=== PATIENT | female | born 1960 | race Caucasian/White ===

== ENCOUNTER 2017-05-06 10:58 | Day surgery (SDC) | payer MEDICARE ==
[2017-05-06] MEDS: NS 1,000 ML IV (13:03)
[2017-05-06] MEDS ORDERED: PROPOFOL 200 MG/20 ML VIAL As Ordered ×2 (13:19→13:43)
[2017-05-06] MEDS ORDERED: LIDOCAINE 2% INJ 100 MG/5 ML SDV (FOR ANES.) As Ordered (13:19)
== END 2017-05-06 14:35 | disposition home or self-care (01) ==
LOC: M OPP 10:58
DX: R10.33 Periumbilical pain (principal); K80.20 Calculus of gallbladder without cholecystitis without obstruction; M62.00 Separation of muscle (nontraumatic), unspecified site; K63.89 Other specified diseases of intestine; K21.9 Gastro-esophageal reflux disease without esophagitis; R12 Heartburn; E10.9 Type 1 diabetes mellitus without complications; R11.0 Nausea; R14.0 Abdominal distension (gaseous); M19.90 Unspecified osteoarthritis, unspecified site; M46.00 Spinal enthesopathy, site unspecified; F32.9 Major depressive disorder, single episode, unspecified; F41.9 Anxiety disorder, unspecified; G62.9 Polyneuropathy, unspecified; N32.9 Bladder disorder, unspecified; Z89.421 Acquired absence of other right toe(s); F17.210 Nicotine dependence, cigarettes, uncomplicated; Z88.8 Allergy status to other drugs, medicaments and biological substances; Z79.899 Other long term (current) drug therapy
CPT/HCPCS: 45380

== ENCOUNTER → 2017-07-09 | Outpatient (REF) | payer MEDICARE ==
[2017-07-09 13:15] LABS: HEMATOCRIT 36.2 % (36.0-47.0); HEMOGLOBIN 11.6 g/dl (12.0-15.5); MEAN CORPUSCULAR HEMOGLOBIN 28.6 pg (27.0-33.0); MEAN CORPUSCULAR VOLUME 89.2 fl (80.0-96.0); PLATELET COUNT, AUTOMATED 343 10^3/uL (150-450); RED BLOOD COUNT 4.06 10^6/uL (4.00-5.40); RED CELL DISTRIBUTION WIDTH 12.6 % (11.5-14.5); WHITE BLOOD COUNT 7.5 10^3/uL (4.0-10.0)
[2017-07-09 13:27] LABS: ALBUMIN 3.3 GM/DL (3.2-5.2); ALKALINE PHOSPHATASE 56 U/L (45-117); ALT/SGPT 21 U/L (12-78); ANION GAP 5 MEQ/L (8-16); AST/SGOT 14 U/L (7-37); BILIRUBIN,TOTAL 0.2 MG/DL (0.2-1.0); BLOOD UREA NITROGEN 32 MG/DL (7-18); CALCIUM LEVEL 8.8 MG/DL (8.5-10.1); CARBON DIOXIDE LEVEL 28 MEQ/L (21-32); CHLORIDE LEVEL 105 MEQ/L (98-107); CREATININE FOR GFR 1.14 MG/DL (0.55-1.30); ESTIMATED AVERAGE GLUCOSE 243 MG/DL (60-110); GLOMERULAR FILTRATION RATE 51.9 (>51); GLUCOSE, FASTING 175 MG/DL (70-100); HEMOGLOBIN A1c 10.1 %; POTASSIUM SERUM 4.3 MEQ/L (3.5-5.1); SODIUM LEVEL 138 MEQ/L (136-145); TOTAL PROTEIN 7.4 GM/DL (6.4-8.2)
== END ==
LOC: M LAB REF 12:08
DX: L97.812 Non-pressure chronic ulcer of other part of right lower leg with fat layer exposed (principal); E11.621 Type 2 diabetes mellitus with foot ulcer; L97.522 Non-pressure chronic ulcer of other part of left foot with fat layer exposed
CPT/HCPCS: 80053

== ENCOUNTER → 2017-07-23 | Outpatient (CLI) | payer MEDICARE ==
[~2017-07-23] MED LIST: ISOVUE-370 76% 100ML VIAL (Q9967) As Ordered
== END ==
LOC: M RAD 08:53
DX: I87.311 Chronic venous hypertension (idiopathic) with ulcer of right lower extremity (principal)
CPT/HCPCS: Q9967

== ENCOUNTER → 2017-07-28 | Outpatient (REF) | payer MEDICARE | LOC: M LAB REF 18:06 | DX: M86.172 Other acute osteomyelitis, left ankle and foot (principal); E11.621 Type 2 diabetes mellitus with foot ulcer; L97.524 Non-pressure chronic ulcer of other part of left foot with necrosis of bone | CPT/HCPCS: 88305 ==

== ENCOUNTER 2017-08-13 08:28 | Inpatient (IN) | payer MEDICARE ==
[2017-08-13 09:07] LABS: BASO # 0.1 10^3/uL (0.0-0.2); BASO % 0.5 % (0.0-1.0); EOS # 0.5 10^3/uL (0.0-0.50); EOS % 2.5 % (0.0-3.0); HEMATOCRIT 34.2 % (36.0-47.0); HEMOGLOBIN 11.1 g/dl (12.0-15.5); IMMATURE GRANULOCYTE % 0.9 % (0-3.0); LYMPH # 1.6 10^3/uL (1.5-4.5); LYMPH % 8.2 % (24.0-44.0); MEAN CORPUSCULAR HEMOGLOBIN 27.8 pg (27.0-33.0); MEAN CORPUSCULAR HGB CONC 32.5 g/dl (32.0-36.5); MEAN CORPUSCULAR VOLUME 85.7 fl (80.0-96.0); MONO # 1.1 10^3/uL (0.0-0.8); MONO % 5.7 % (0.0-5.0); NEUTROPHILS # 16.3 10^3/uL (1.8-7.7); NEUTROPHILS % 82.2 % (36.0-66.0); PLATELET COUNT, AUTOMATED 415 10^3/uL (150-450); RED BLOOD COUNT 3.99 10^6/uL (4.00-5.40); RED CELL DISTRIBUTION WIDTH 12.4 % (11.5-14.5); WHITE BLOOD COUNT 19.8 10^3/uL (4.0-10.0)
[2017-08-13 09:13] LABS: INR 1.08; PROTHROMBIN TIME 14.2 SECONDS (12.4-14.5)
[2017-08-13 09:14] LABS: PARTIAL THROMBOPLASTIN TIME 38.3 SECONDS (26.8-37.9)
[2017-08-13 09:36] LABS: ANION GAP 8 MEQ/L (8-16); BLOOD UREA NITROGEN 19 MG/DL (7-18); CALCIUM LEVEL 8.6 MG/DL (8.5-10.1); CARBON DIOXIDE LEVEL 27 MEQ/L (21-32); CHLORIDE LEVEL 100 MEQ/L (98-107); CPK CREATINE PHOSPHOKINASE 90 U/L (26-192); CREATININE FOR GFR 1.04 MG/DL (0.55-1.30); GLOMERULAR FILTRATION RATE 57.7 (>51); GLUCOSE, FASTING 215 MG/DL (70-100); POTASSIUM SERUM 4.7 MEQ/L (3.5-5.1); SODIUM LEVEL 135 MEQ/L (136-145); TROPONIN I < 0.02 NG/ML (< 0.10)
[2017-08-13 09:41] LABS: CK-MB VALUE MASS 6.3 NG/ML (<3.6); NT-PRO BNP 79 PG/ML (<125)
[2017-08-13] MEDS ORDERED: DEXTROSE 50% 50 ML SYRINGE IV (10:45)
[2017-08-13] MEDS ORDERED: MORPHINE 4 MG/ML 1ML VIAL/SYRINGE (J2270) IV (10:45)
[2017-08-13] MEDS ORDERED: ONDANSETRON 4MG/2ML VIAL (J2405) IV ×3 (10:45→16:30)
[2017-08-13] MEDS ORDERED: GLUCAGON FOR INJ 1 MG VIAL (J1610) SC (10:45)
[2017-08-13] MEDS ORDERED: ACETAMINOPHEN TAB 650MG DOSE (2X325MG) PO (10:45)
[2017-08-13] MEDS ORDERED: GLUCOSE 4 GM CHEW TABLET PO (10:45)
[2017-08-13] MEDS: PERCOCET 5MG/325MG TAB PO (11:51)
[2017-08-13] MEDS ORDERED: HumaLOG INSULIN (NovoLOG) PER UNIT SC ×2 (12:00→21:00)
[2017-08-13 12:47] LABS: BEDSIDE GLUCOSE 187 MG/DL (70-105)
[2017-08-13] MEDS: NS 1,000 ML IV (12:57)
[2017-08-13] MEDS: HumaLOG INSULIN (NovoLOG) PER UNIT SC ×4 (12:58→21:00)
[2017-08-13] MEDS ORDERED: HEPARIN 1,000 UNITS/ML 10ML VIAL (FOR RADIOLOGY& DIALYSIS ONLY) As Ordered (13:38)
[2017-08-13] MEDS ORDERED: ISOVUE-300 61% 50ML VIAL (Q9967) As Ordered (13:39)
[2017-08-13] MEDS ORDERED: NORCO, ANEXSIA 5/325MG TABLET (HYDROcodone/ACETAMINOPHEN) PO (14:30)
[2017-08-13] MEDS ORDERED: FUROSEMIDE 20 MG TAB PO (14:30)
[2017-08-13] MEDS: clonazePAM 1 MG TAB PO ×2 (15:57→21:30)
[2017-08-13] MEDS: HEPARIN SOD (PORCINE) 5000 UNITS/ML VIAL SC ×2 (15:57→21:32)
[2017-08-13 16:16] LABS: BEDSIDE GLUCOSE 149 MG/DL (70-105)
[2017-08-13] MEDS: LR 1,000 ML IV ×2 (16:36)
[2017-08-13] MEDS: GABAPENTIN 300 MG CAP PO ×2 (16:54→21:30)
[2017-08-13] MEDS: ceFAZolin SOD 1 GM in D5W MINI-BAG PLUS 50 ML IV (16:55)
[2017-08-13] MEDS: LISINOPRIL 10 MG TAB PO (16:55)
[2017-08-13] MEDS: METHADONE 10 MG TAB (S0109) PO ×2 (16:56→21:30)
[2017-08-13] MEDS: NS 0.45% 1,000 ML IV (16:59)
[2017-08-13 17:14] LABS: BEDSIDE GLUCOSE 149 MG/DL (70-105)
[2017-08-13 20:23] LABS: BEDSIDE GLUCOSE 205 MG/DL (70-105)
[2017-08-13] MEDS: FENOFIBRATE 145 MG TAB (TRICOR) PO (21:31)
[2017-08-13] MEDS: AMITRIPTYLINE 50 MG TAB PO (21:31)
[2017-08-13] MEDS: LEVEMIR (INSULIN DETEMIR) 1 UNITS/0.01ML SC (21:31)
[2017-08-14] MEDS: NS 0.45% 1,000 ML IV (03:17)
[2017-08-14] MEDS: HEPARIN SOD (PORCINE) 5000 UNITS/ML VIAL SC ×2 (05:10→12:26)
[2017-08-14 05:40] LABS: HEMATOCRIT 33.4 % (36.0-47.0); MEAN CORPUSCULAR HGB CONC 32.9 g/dl (32.0-36.5); PLATELET COUNT, AUTOMATED 326 10^3/uL (150-450); RED BLOOD COUNT 3.93 10^6/uL (4.00-5.40); RED CELL DISTRIBUTION WIDTH 12.5 % (11.5-14.5); WHITE BLOOD COUNT 13.5 10^3/uL (4.0-10.0)
[2017-08-14 06:29] LABS: ANION GAP 7 MEQ/L (8-16); BLOOD UREA NITROGEN 18 MG/DL (7-18); CALCIUM LEVEL 8.3 MG/DL (8.5-10.1); CARBON DIOXIDE LEVEL 25 MEQ/L (21-32); CHLORIDE LEVEL 103 MEQ/L (98-107); CREATININE FOR GFR 0.88 MG/DL (0.55-1.30); GLOMERULAR FILTRATION RATE > 60.0 (>51); GLUCOSE, FASTING 127 MG/DL (70-100); POTASSIUM SERUM 4.3 MEQ/L (3.5-5.1); SODIUM LEVEL 135 MEQ/L (136-145); T UPTAKE 37 % (30-39)
[2017-08-14] MEDS: clonazePAM 1 MG TAB PO (08:12)
[2017-08-14] MEDS: HumaLOG INSULIN (NovoLOG) PER UNIT SC ×2 (08:12→12:26)
[2017-08-14] MEDS: GABAPENTIN 300 MG CAP PO (08:12)
[2017-08-14] MEDS: LISINOPRIL 10 MG TAB PO (08:13)
[2017-08-14] MEDS: METHADONE 10 MG TAB (S0109) PO (08:13)
[2017-08-14 11:47] LABS: BEDSIDE GLUCOSE 120 MG/DL (70-105)
== END 2017-08-14 15:41 | disposition left against medical advice (07) | DRG 630 ==
LOC: M ED 08:28 → M ED INP 10:37 → M MSPAV 12:21
PROC: 047L3DZ Dilation of Left Femoral Artery with Intraluminal Device, Percutaneous Approach (ICD-10-PCS; principal; 2017-08-13)
PROC: 047N3DZ Dilation of Left Popliteal Artery with Intraluminal Device, Percutaneous Approach (ICD-10-PCS; 2017-08-13)
PROC: B400YZZ Plain Radiography of Abdominal Aorta using Other Contrast (ICD-10-PCS; 2017-08-13)
PROC: B40GYZZ Plain Radiography of Left Lower Extremity Arteries using Other Contrast (ICD-10-PCS; 2017-08-13)
DX: E11.621 Type 2 diabetes mellitus with foot ulcer (principal); E11.42 Type 2 diabetes mellitus with diabetic polyneuropathy; E11.51 Type 2 diabetes mellitus with diabetic peripheral angiopathy without gangrene; G89.29 Other chronic pain; M54.40 Lumbago with sciatica, unspecified side; F17.210 Nicotine dependence, cigarettes, uncomplicated; Z79.4 Long term (current) use of insulin; Z89.411 Acquired absence of right great toe; Z79.899 Other long term (current) drug therapy; Z91.018 Allergy to other foods; Z88.6 Allergy status to analgesic agent

== ENCOUNTER → 2017-08-13 | Outpatient (CLI) | payer MEDICARE ==
[~2017-08-13] MED LIST changes: +HEPARIN 1,000 UNITS/ML 10ML VIAL (FOR RADIOLOGY& DIALYSIS ONLY) As Ordered; +ISOVUE-300 61% 50ML VIAL (Q9967) As Ordered; -ISOVUE-370 76% 100ML VIAL (Q9967) As Ordered; +MIDAZOLAM INJ 2 MG/2 ML VIAL (J2250) As Ordered; +fentaNYL 100 MCG/2 ML INJECTION (J3010) As Ordered
== END ==
LOC: M IRPRO 06:35
DX: I70.248 Atherosclerosis of native arteries of left leg with ulceration of other part of lower leg (principal); L97.829 Non-pressure chronic ulcer of other part of left lower leg with unspecified severity; I83.218 Varicose veins of right lower extremity with both ulcer of other part of lower extremity and inflammation; T81.4XXA Infection following a procedure, initial encounter; Z89.411 Acquired absence of right great toe
CPT/HCPCS: 37224

== ENCOUNTER 2017-08-28 10:34 | Emergency (ER) | payer MEDICARE | END 2017-08-28 13:33 | disposition home or self-care (01) | LOC: M ED 10:34 | DX: F43.0 Acute stress reaction (principal); E11.51 Type 2 diabetes mellitus with diabetic peripheral angiopathy without gangrene; I10 Essential (primary) hypertension; I73.9 Peripheral vascular disease, unspecified; G89.29 Other chronic pain; M54.30 Sciatica, unspecified side; F17.210 Nicotine dependence, cigarettes, uncomplicated | CPT/HCPCS: 99283 ==

== ENCOUNTER → 2018-11-08 | Outpatient (CLI) | payer MEDICARE ==
[~2018-11-08] MED LIST changes: +AMIT50TA PO; +CLON1TAB8 PO; +FENO160T10 PO; +FURO20TA2 PO; +GABA-843 PO; +GLIM4TAB PO; -HEPARIN 1,000 UNITS/ML 10ML VIAL (FOR RADIOLOGY& DIALYSIS ONLY) As Ordered; +HYDR-3713 PO; +INSULANT SC; -ISOVUE-300 61% 50ML VIAL (Q9967) As Ordered; +LISI10TA4 PO; +MELO7.5T7 PO; +METH10TA2 PO; -MIDAZOLAM INJ 2 MG/2 ML VIAL (J2250) As Ordered; +NEUR300C PO; +NORC1TAB7 PO; +ZOFR4TAB16 PO; -fentaNYL 100 MCG/2 ML INJECTION (J3010) As Ordered
--- NOTE | 2018-11-08 14:47 | REP ---
Right lower extremity Duplex Doppler venous ultrasound: Real time compression and duplex Doppler interrogation of the right lower extremity deep venous system is performed. The right common femoral, superficial femoral and popliteal veins are fully compressible with transducer pressure and demonstrate normal spontaneous and phasic flow, without evidence of deep venous thrombosis. Impression: No evidence of deep venous thrombosis of the right lower extremity femoral popliteal venous system. Electronically Signed by Gavin Sanders MD 11/08/2018 02:39 P
== END ==
LOC: M RAD 14:06
PROVIDERS: ATTEND Surgery Vascular Surgery
DX: M79.604 Pain in right leg (principal); R22.41 Localized swelling, mass and lump, right lower limb

== ENCOUNTER → 2018-12-27 | Outpatient (REF) | payer MEDICARE ==
[~2018-12-27] MED LIST changes: -GLIM4TAB PO; +GLIM4TAB3 PO
[2018-12-27 15:39] LABS: BASO # 0.1 10^3/uL (0.0-0.2); BASO % 0.8 % (0.0-1.0); EOS # 0.8 10^3/uL (0.0-0.5); EOS % 7.5 % (0.0-3.0); HEMOGLOBIN 11.4 g/dl (12.0-15.5); LYMPH % 28.5 % (24.0-44.0); MEAN CORPUSCULAR HEMOGLOBIN 28.2 pg (27.0-33.0); MEAN CORPUSCULAR HGB CONC 30.8 g/dl (32.0-36.5); MEAN CORPUSCULAR VOLUME 91.6 fl (80.0-96.0); MONO # 0.8 10^3/uL (0.0-0.8); MONO % 7.8 % (0.0-5.0); NEUTROPHILS # 5.9 10^3/uL (1.5-8.5); PLATELET COUNT, AUTOMATED 339 10^3/uL (150-450); RED BLOOD COUNT 4.04 10^6/uL (4.00-5.40); WHITE BLOOD COUNT 10.7 10^3/uL (4.0-10.0)
[2018-12-27 15:41] LABS: ALBUMIN 3.4 GM/DL (3.2-5.2); BILIRUBIN,TOTAL 0.2 MG/DL (0.2-1.0); C REACTIVE PROTEIN QUANTITATIV 0.73 MG/DL (0.00-0.30); CALCIUM LEVEL 8.8 MG/DL (8.8-10.2); CREATININE FOR GFR 1.38 MG/DL (0.55-1.30); GLOMERULAR FILTRATION RATE 41.5 (>45); POTASSIUM SERUM 4.2 MEQ/L (3.5-5.1); TOTAL PROTEIN 7.2 GM/DL (6.4-8.2)
[2018-12-27 15:50] LABS: APPEARANCE, URINE CLOUDY (CLEAR); BACTERIA, URINE AUTO NEGATIVE (NEGATIVE); BILIRUBIN, URINE AUTO NEGATIVE (NEGATIVE); BLOOD, URINE BLOOD 1+ (NEGATIVE); COLOR, URINE YELLOW (YELLOW); GLUCOSE, URINE (UA) AUTO 3+ mg/dL (NEGATIVE); KETONE, URINE AUTO NEGATIVE (NEGATIVE); LEUKOCYTE ESTERASE, URINE AUTO 2+ (NEGATIVE); NITRITE, URINE AUTO NEGATIVE (NEGATIVE); PROTEIN, URINE AUTO NEGATIVE (NEGATIVE); RBC, URINE AUTO 4 /HPF (0-3); SPECIFIC GRAVITY URINE AUTO 1.012 (1.002-1.035); SQUAMOUS EPITHELIAL CELL UR AU 1 /HPF (0-6); UROBILINOGEN, URINE AUTO 0.2 mg/dL (0.0-2.0); WBC, URINE AUTO TNTC /HPF (0-3)
[2018-12-27 16:15] LABS: ERYTHROCYTE SEDIMENTATION RATE 18 mm/hr (0-30)
== END ==
LOC: M SFHCPLAZ 12:33
PROVIDERS: ATTEND Internal Medicine Infectious Disease
DX: N39.0 Urinary tract infection, site not specified (principal)
CPT/HCPCS: 36415; 80053; 81001; 85025; 85652; 86140; 87086; G0463

== ENCOUNTER → 2019-05-03 | Outpatient (REF) | payer MEDICARE ==
[~2019-05-03] MED LIST changes: -GLIM4TAB3 PO; +GLIM4TAB5 PO
[2019-05-03 13:42] LABS: APPEARANCE, URINE CLEAR (CLEAR); BACTERIA, URINE AUTO NEGATIVE (NEGATIVE); BILIRUBIN, URINE AUTO NEGATIVE (NEGATIVE); BLOOD, URINE BLOOD NEGATIVE (NEGATIVE); COLOR, URINE STRAW (YELLOW); GLUCOSE, URINE (UA) AUTO 3+ mg/dL (NEGATIVE); KETONE, URINE AUTO NEGATIVE (NEGATIVE); LEUKOCYTE ESTERASE, URINE AUTO TRACE (NEGATIVE); NITRITE, URINE AUTO NEGATIVE (NEGATIVE); PROTEIN, URINE AUTO NEGATIVE (NEGATIVE); RBC, URINE AUTO 1 /HPF (0-3); SPECIFIC GRAVITY URINE AUTO 1.022 (1.002-1.035); SQUAMOUS EPITHELIAL CELL UR AU 1 /HPF (0-6); UROBILINOGEN, URINE AUTO 0.2 mg/dL (0.0-2.0); WBC, URINE AUTO 3 /HPF (0-3)
== END ==
LOC: M SMT 13:05
PROVIDERS: ATTEND Nurse Practitioner Women's Health
DX: R39.89 Other symptoms and signs involving the genitourinary system (principal)
CPT/HCPCS: 51798; 81001; 87086; G0463

== ENCOUNTER → 2019-09-30 | Outpatient (REF) | payer MEDICARE ==
[~2019-09-30] MED LIST changes: +POTA10TA16 PO; +VAGI10TA VA
== END ==
LOC: M SMT 09:13
PROVIDERS: ATTEND Urology
DX: N30.90 Cystitis, unspecified without hematuria (principal)

== ENCOUNTER → 2019-11-11 | Outpatient (REF) | payer MEDICARE ==
[2019-11-11 20:03] LABS: APPEARANCE, URINE CLOUDY (CLEAR); BACTERIA, URINE AUTO NEGATIVE (NEGATIVE); BILIRUBIN, URINE AUTO NEGATIVE (NEGATIVE); BLOOD, URINE BLOOD 1+ (NEGATIVE); COLOR, URINE YELLOW (YELLOW); GLUCOSE, URINE (UA) AUTO NEGATIVE (NEGATIVE); KETONE, URINE AUTO NEGATIVE (NEGATIVE); LEUKOCYTE ESTERASE, URINE AUTO 3+ (NEGATIVE); NITRITE, URINE AUTO NEGATIVE (NEGATIVE); PROTEIN, URINE AUTO NEGATIVE (NEGATIVE); RBC, URINE AUTO 6 /HPF (0-3); SPECIFIC GRAVITY URINE AUTO 1.012 (1.002-1.035); SQUAMOUS EPITHELIAL CELL UR AU 0 /HPF (0-6); UROBILINOGEN, URINE AUTO 0.2 mg/dL (0.0-2.0); WBC, URINE AUTO TNTC /HPF (0-3)
== END ==
LOC: M LAB REF 17:21
PROVIDERS: ATTEND Obstetrics & Gynecology
DX: N30.00 Acute cystitis without hematuria (principal)

== ENCOUNTER → 2019-12-17 | Outpatient (CLI) | payer MEDICARE | LOC: M LABSMTC 08:07 | PROVIDERS: ATTEND Anesthesiology | DX: Z01.818 Encounter for other preprocedural examination (principal); Z20.828 Contact with and (suspected) exposure to other viral communicable diseases | CPT/HCPCS: C9803; U0003 ==

== ENCOUNTER → 2020-05-14 | Outpatient (REF) | payer MEDICARE ==
[~2020-05-14] MED LIST changes: +GABA-282 PO; -GABA-843 PO; +LISI10TA22 PO; -LISI10TA4 PO
[2020-05-14 17:12] LABS: APPEARANCE, URINE TURBID (CLEAR); BACTERIA, URINE AUTO 2+ (NEGATIVE); BILIRUBIN, URINE AUTO NEGATIVE (NEGATIVE); BLOOD, URINE BLOOD 2+ (NEGATIVE); COLOR, URINE YELLOW (YELLOW); GLUCOSE, URINE (UA) AUTO 3+ mg/dL (NEGATIVE); KETONE, URINE AUTO NEGATIVE (NEGATIVE); LEUKOCYTE ESTERASE, URINE AUTO 3+ (NEGATIVE); NITRITE, URINE AUTO NEGATIVE (NEGATIVE); PROTEIN, URINE AUTO 2+ mg/dL (NEGATIVE); RBC, URINE AUTO 81 /HPF (0-3); SPECIFIC GRAVITY URINE AUTO 1.008 (1.002-1.035); SQUAMOUS EPITHELIAL CELL UR AU 3 /HPF (0-6); UROBILINOGEN, URINE AUTO 0.2 mg/dL (0.0-2.0); WBC, URINE AUTO TNTC /HPF (0-3)
== END ==
LOC: M LAB REF 16:20
PROVIDERS: ATTEND Obstetrics & Gynecology
DX: R35.0 Frequency of micturition (principal); N32.81 Overactive bladder

== ENCOUNTER → 2020-06-23 | Outpatient (CLI) | payer MEDICARE ==
[~2020-06-23] MED LIST changes: +ASPI81TA26 PO; +ATOR80TA59; +LEVO50TA5; +METO1TAB32
== END ==
LOC: M LABSMTC 09:41
PROVIDERS: ATTEND Anesthesiology
DX: Z01.818 Encounter for other preprocedural examination (principal); Z11.52 Encounter for screening for COVID-19

== ENCOUNTER 2020-06-28 06:00 | Day surgery (SDC) | payer MEDICARE ==
[~2020-06-28] VITALS: Ht 152.4 cm; Wt 86.5 kg
[~2020-06-28 06:00] MED LIST changes: +LR 1,000 ML IV ONE; +ceFAZolin SOD 2 GM in IV 1 EA IV ONE
[2020-06-28 06:38] LABS: HEMATOCRIT 39.4 % (36.0-47.0); HEMOGLOBIN 12.4 g/dl (12.0-15.5); MEAN CORPUSCULAR HEMOGLOBIN 27.1 pg (27.0-33.0); MEAN CORPUSCULAR HGB CONC 31.5 g/dl (32.0-36.5); PLATELET COUNT, AUTOMATED 337 10^3/uL (150-450); RED BLOOD COUNT 4.58 10^6/uL (4.00-5.40); WHITE BLOOD COUNT 11.9 10^3/uL (4.0-10.0)
[2020-06-28] MEDS ORDERED: fentaNYL 250 MCG/5 ML INJECTION (J3010) As Ordered ONE (06:42)
[2020-06-28] MEDS ORDERED: ROCURONIUM BROMIDE 50 MG/5 ML VIAL As Ordered ONE (06:43)
[2020-06-28] MEDS ORDERED: propofoL 200 MG/20 ML VIAL As Ordered ONE (06:43)
[2020-06-28] MEDS ORDERED: MIDAZOLAM INJ 2MG/2ML VIAL (J2250 PER 1MG) As Ordered ONE (06:43)
[2020-06-28] MEDS ORDERED: dexameTHASONE 4 MG/ML 1ML VIAL (J1100 PER 1MG) As Ordered ONE (06:44)
[2020-06-28] MEDS ORDERED: ACETAMINOPHEN 1000MG 100ML IV BTL (OFIRMEV) (J0131 PER 10MG) As Ordered ONE (06:44)
[2020-06-28] MEDS ORDERED: LIDOCAINE 2% 100MG/5ML SDV (FOR ANES.) As Ordered ONE ×2 (06:44→08:00)
[2020-06-28] MEDS ORDERED: SUGAMMADEX SODIUM 500 MG/5 ML VIAL (BRIDION) As Ordered ONE (06:46)
[2020-06-28] MEDS ORDERED: ONDANSETRON 4MG/2ML VIAL As Ordered ONE (06:46)
[2020-06-28] MEDS ORDERED: KETOROLAC 60MG 2ML VIAL As Ordered ONE (06:50)
[2020-06-28] MEDS ORDERED: VASOPRESSIN INJ 20 UNITS/ML VIAL As Ordered ONE (07:08)
[2020-06-28] MEDS ORDERED: D5W/0.2% SODIUM CHLORIDE 1,000 ML IV ONE (07:35)
[2020-06-28] MEDS ORDERED: HEPARIN SOD (PORCINE) 5000UNITS/ML 1ML VIAL/SYRINGE As Ordered ONE ×2 (08:05→08:06)
[2020-06-28] MEDS ORDERED: ePHEDrine SULFATE 25 MG/5 ML(5MG/ML) SYRINGE As Ordered ONE (09:31)
[2020-06-28] MEDS ORDERED: ONDANSETRON 4MG/2ML VIAL IV PRN (10:30)
[2020-06-28] MEDS ORDERED: PERCOCET 5MG/325MG TAB PO PRN (10:30)
[2020-06-28] MEDS ORDERED: METOCLOPRAMIDE INJ 10MG/2ML VIAL (J2765 PER 1) IV PRN (10:30)
[2020-06-28] MEDS ORDERED: LR 1,000 ML IV SCH ×2 (10:30→10:35)
[2020-06-28] MEDS ORDERED: fentaNYL 100 MCG/2 ML INJECTION (J3010) IV PRN (10:30)
[2020-06-28] MEDS ORDERED: IBUPROFEN 600MG TAB PO PRN (10:35)
--- NOTE | 2020-06-28 11:52 | RO ---
OPERATIVE NOTE DATE OF OPERATION: 06/28/2020 PREOPERATIVE DIAGNOSIS/INDICATIONS FOR SURGERY: Symptomatic prolapse, retention and white cells in urine. POSTOPERATIVE DIAGNOSIS: Symptomatic prolapse, retention and white cells in urine. FINDINGS: Prolapse and sediment in the bladder but no specific bladder lesions, but does not rule out stone higher up. PROCEDURE: [place] colpocleisis with cystourethroscopy done for the separate indication as noted above. SURGEON: Marylin Riggs MD REDRAWER: None. SPECIMEN: Vaginal epithelium. ANESTHESIA: LMA. DESCRIPTION OF PROCEDURE AND FINDINGS: Jacki was brought to the operating room where sufficient LMA anesthesia was induced and she was prepped and draped and positioned in usual sterile fashion. The patient's anterior prolapse was external, posterior prolapse not as pronounced so we did empty the bladder and there was again sedimentary retention. After emptying the bladder placed a retractor, placed Allis' at the cuff and marked off anterior and posterior mental guidelines with Allis' and then cut transversely at the cuff. Anteriorly and posteriorly leaving a strip of tissue be there as support at this scar which was not falling out in the way that her bladder was. We then excised a __ peninsula of tissue posteriorly, rectangular, so we had that transverse incision at top and came down the posterior sulcus on both sides and left that tissue connected at the introitus and on an Allis so it would hang out away and we marked with suture those corners and second suture on the patient's right side because I am left-handed so that I would be able to bring one across and separately come down the two sides because this patient had quite a bit of redundant tissue anteriorly and I did not want to lose orientation. We then completed the transverse anterior incision and then came in again a rectilinear shape down the anterior vaginal sulcus on both sides leaving apical tissue and the lateral tissue. When we had dissected for enough anteriorly we did renee and come across and in this patient we wanted to leave enough room for any future intervention for her incontinence. She did have some incontinence but she also had retention and with a pessary would have improvement rather than an increase in leakage but there is still not a tremendously strong fold there and I certainly did not want to obstruct it given her history of retention but I did not want to lose the option to put in support in the future and we had already discussed that. She did have a natural fold there to follow. We would remove the entire rectangle of tissue anteriorly. We then did an anterior repair to reduce very large cystocele and plicate at the bladder neck so that we could line those edges up and then we sewed across with separate suture across the apex and down the two sides with the two sutures that I had previously placed. We completed the excision of the posterior tissue which was also sent for pathologic evaluation and closed across at the introitus completing the colpocleisis. We had good approximation and hemostasis throughout this. We then proceeded to the cystourethroscopy. As expected there was quite a bit of sedimentary material within the bladder but with irrigation we were able to flush all this off, there were no polyps, no specific lesions, we were able to see the ureters, view function, some question of whether the urine coming out on the right side is cloudy or not, I really could not answer that question because at one point it looked like it but then with flushing it looks like it was not so this is probably just cloudiness within the bladder itself where she had had all that retention and simply stagnant urine. But again, there is no evidence of bladder injury and no obstruction of ureters, etc and no lesions leading to the preop finding. The procedure was then ended. ESTIMATED BLOOD LOSS: 25 mL. FLUID REPLACEMENT: Crystalloid. COMPLICATIONS: None. CONDITION AND DISPOSITION: Jacki tolerated the procedure well. I will say at the beginning of the case she was for prophylaxis for DVT given 5000 units of Heparin subcu and that was ordered in the operating room but given of course preop. She is recovering in the recovery room in good condition.
[2020-06-28 12:25] VITALS: BP 114/61
== END 2020-06-28 12:35 | disposition home or self-care (01) ==
LOC: M SDC 06:00
PROVIDERS: ATTEND Obstetrics & Gynecology
DX: N76.89 Other specified inflammation of vagina and vulva (principal); N81.89 Other female genital prolapse; R33.9 Retention of urine, unspecified; R82.90 Unspecified abnormal findings in urine; E11.40 Type 2 diabetes mellitus with diabetic neuropathy, unspecified; I11.9 Hypertensive heart disease without heart failure; E78.49 Other hyperlipidemia; R60.0 Localized edema; I25.10 Atherosclerotic heart disease of native coronary artery without angina pectoris; E03.9 Hypothyroidism, unspecified; I65.23 Occlusion and stenosis of bilateral carotid arteries; R10.9 Unspecified abdominal pain; R12 Heartburn; M48.00 Spinal stenosis, site unspecified; Z86.718 Personal history of other venous thrombosis and embolism; F41.9 Anxiety disorder, unspecified; F32.9 Major depressive disorder, single episode, unspecified; G57.93 Unspecified mononeuropathy of bilateral lower limbs; G25.81 Restless legs syndrome; F17.219 Nicotine dependence, cigarettes, with unspecified nicotine-induced disorders; Z88.8 Allergy status to other drugs, medicaments and biological substances; Z91.018 Allergy to other foods; Z79.899 Other long term (current) drug therapy; Z79.82 Long term (current) use of aspirin; Z79.4 Long term (current) use of insulin
CPT/HCPCS: 36415; 52000; 57120; 85027; 88302; J0131; J0690; J1100; J1644; J1885; J2250; J2405; J3010

== ENCOUNTER → 2020-09-04 | Outpatient (REF) | payer MEDICARE ==
[~2020-09-04] MED LIST changes: -LR 1,000 ML IV ONE; -ceFAZolin SOD 2 GM in IV 1 EA IV ONE
[2020-09-04 12:19] LABS: MEAN CORPUSCULAR HEMOGLOBIN 27.2 pg (27.0-33.0); MEAN CORPUSCULAR HGB CONC 31.4 g/dl (32.0-36.5); MEAN CORPUSCULAR VOLUME 86.4 fl (80.0-96.0); PLATELET COUNT, AUTOMATED 370 10^3/uL (150-450); RED BLOOD COUNT 4.05 10^6/uL (4.00-5.40); WHITE BLOOD COUNT 12.5 10^3/uL (4.0-10.0)
[2020-09-04 12:57] LABS: BILIRUBIN,TOTAL 0.4 MG/DL (0.2-1.0); CALCIUM LEVEL 8.5 MG/DL (8.8-10.2); CREATININE FOR GFR 1.57 MG/DL (0.55-1.30); GLOMERULAR FILTRATION RATE 35.5 (>45); POTASSIUM SERUM 4.4 MEQ/L (3.5-5.1); TOTAL PROTEIN 7.3 GM/DL (6.4-8.2)
[2020-09-04 13:06] LABS: HEMOGLOBIN A1c 10.7 %
== END ==
LOC: M LAB REF 11:19
PROVIDERS: ATTEND Surgery
DX: I87.312 Chronic venous hypertension (idiopathic) with ulcer of left lower extremity (principal); Z79.899 Other long term (current) drug therapy; L97.822 Non-pressure chronic ulcer of other part of left lower leg with fat layer exposed; L97.812 Non-pressure chronic ulcer of other part of right lower leg with fat layer exposed
CPT/HCPCS: 11042; 11045; 80053; 83036; 85027; G0463

== ENCOUNTER → 2020-10-16 | Outpatient (CLI) | payer MEDICARE ==
[~2020-10-16] MED LIST changes: +METH-1177 PO; -METH10TA2 PO
== END ==
LOC: M RAD 12:19
PROVIDERS: ATTEND Surgery
DX: L97.822 Non-pressure chronic ulcer of other part of left lower leg with fat layer exposed (principal); L97.812 Non-pressure chronic ulcer of other part of right lower leg with fat layer exposed

== ENCOUNTER → 2020-10-22 | Outpatient (CLI) | payer MEDICARE ==
[~2020-10-22] MED LIST changes: +ANEC4CRE3 TOP; +CAPS0.022 TOP; +OMEP-221; +POTA-149 PO; -POTA10TA16 PO
== END ==
LOC: M RAD 07:41
PROVIDERS: ATTEND Surgery
DX: I70.212 Atherosclerosis of native arteries of extremities with intermittent claudication, left leg (principal); L97.329 Non-pressure chronic ulcer of left ankle with unspecified severity; K80.20 Calculus of gallbladder without cholecystitis without obstruction; R10.11 Right upper quadrant pain; R10.13 Epigastric pain

== ENCOUNTER 2020-12-19 10:19 | Emergency (ER) | payer MEDICARE ==
[~2020-12-19] VITALS: Ht 152.4 cm; Wt 80.5 kg
[~2020-12-19 10:19] MED LIST changes: -ANEC4CRE3 TOP; -CAPS0.022 TOP; -OMEP-221
[2020-12-19] MEDS ORDERED: OMEP-221 (10:27)
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
--- OUTSIDE RECORDS SUMMARY | 2020-12-19 10:29 | CCD ---
Author Author [facility] Organization [facility] Address Unknown Phone Unavailable Care Team Providers Care Heel Breaster Name Role Phone Truong Funes Unavailable PROBLEMS Type Condition ICD9-CM Code [id number] Code Onset Dates Condition S tatus W/U Status Risk SNOMED Code Notes Problem Chronic venous hypertension (idiopathic) with ulcer of left lower extremity I87.312 Active confirmed [id number] Problem Ingrowing right great toenail 703.0 Active confirm ed 961521326 Problem Non-pressure chronic ulcer o f other part of left lower leg with fat layer exposed L97.822 Active confirmed 52137551 Problem 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 of skin L97.421 Active confirmed 525849861 Problem Polyneuropathy G62.9 Active confirmed 58706 000 Problem Non-pressure chronic ulcer o f other part of left foot with fat layer exposed L97.522 Active confirmed 127531345 Problem Type 2 diabetes mellitus with foot ulcer E11.621 Active confirmed 128988229 Problem 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 9 Active confirmed 136694799 Problem Menopause Z78.0 Active confirmed 323595277 Problem Recurrent UTI N39.0 Active confirmed 639986 001 ALLERGIES Allergen (clinical drug ingredient) Drug/Non Drug Allergy do cumented on EMR Reaction Allergy Type Onset Date Status [place] juice orange juice Hives Non Drug Allergy Acti ve naproxen Naprosyn([facility] Code:[address]-65) Nausea/Vomiting Drug Loy rgy Active ENCOUNTERS from 1960 to 2020-11-28 Encounter Location Date Provider Diagnosis [facility] [address] [facility] [phone] [place] [address] Oct, Truong Funes IMMUNIZATIONS Vaccine Route Administration Date Status Influenza [...] REASON FOR REFERRAL No Information VITAL SIGNS No information MEDICATIONS Medication SIG (Take, Route, Frequency, Duration) Notes Start Da te End Date Status Acetaminophen 325 MG 1 capsule as needed Orally every 6 hrs Not-Taking Methadone 10mg 1 tab po tid Active clonazePAM 1 MG 1 tablet Orally bid Active Ondansetron HCl 4 MG 1 tab Orally q6h Unknown Metoprolol Tartrate 25 MG 1.5 tablet Orally Twice a day Active Lantus 100 UNIT/ML 40 units am 40 units pm Subcutaneous daily Active Nitroglycerin 0.4 MG as directed Sublingual Active Meloxicam 7.5 MG 1 tablet Orally bid Unknown Nystatin 300155 UNIT/GM 1 application Externally Twice a day to groin area Apr, Unknown Lisinopril 10 MG 1 tablet Orally Once a day Active Levothyroxine Sodium 50 MCG 1 tablet in the morning on an empty stomach Orally Once a day for 30 day(s) Active Aspir-81 Active Glimepiride 4 4mg oral daily Active Fenofibrate 160 MG 1 tablet with food Orally Once a day Unknown Torsemide 20 MG as directed Orally A ctive Amitriptyline HCl 50 MG 1 tablet Orally Once a day Active Premarin 0.625 MG/GM as directed Vaginal three times a week for 30 days Dec, Unknown Pyridium 200 MG 1 tablet after meals Orally Three times a day fo r 5 days Jul, Unknown Wellbutrin SR 150 MG 1 tablet in the morning Orally Once a day f or 30 day(s) Not-Taking Lipitor 80 MG 1 tablet Orally Once a day for 30 day(s) Active Nystatin 539438 UNIT/GM 1 application Externally Twice a day for 30 Days Dec, Active Furosemide 20 MG 1 tablet Orally Once a day Active Macrobid 100 MG 1 cap Orally bid for 10 day(s) Jul, 0 Unknown Aspirin 325 MG 1 tablet Orally Once a day for 30 day(s) Not-Taking PROCEDURES No Information RESULTS No Results REASON FOR VISIT Arterial US MEDICAL (GENERAL) HISTORY Type Description Date Medical [...] No Information FUNCTIONAL STATUS No Information ASSESSMENTS No Information PLAN OF TREATMENT Next Appt Details Provider Name:Truong Funes, 01:15:00 PM, [address], , [place], [address], Insurance Providers Payer Name Payer Address Payer Phone Insured Name Patient Relati onship to Insured Coverage Start Date Coverage End Date MEDICARE COMPLETE [employer] [address] [address] [facility] [phone] MARLIN VIVAS self
--- OUTSIDE RECORDS SUMMARY | 2020-12-19 10:30 | CCD ---
Author Author [facility] Organization [facility] Address Unknown Phone Unavailable Care Team Providers Care Central Supply Technician Name Role Phone Truong Funes Unavailable PROBLEMS Type Condition ICD9-CM Code [id number] Code Onset Dates Condition S tatus W/U Status Risk SNOMED Code Notes Problem Chronic venous hypertension (idiopathic) with ulcer of left lower extremity I87.312 Active confirmed 809743580580811 Problem Ingrowing right great toenail 703.0 Active confirm ed 664637407 Problem Non-pressure chronic ulcer o f other part of left lower leg with fat layer exposed L97.822 Active confirmed 97689307 Problem 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 of skin L97.421 Active confirmed 103145211 Problem Polyneuropathy G62.9 Active confirmed 94815 000 Problem Non-pressure chronic ulcer o f other part of left foot with fat layer exposed L97.522 Active confirmed 184141552 Problem Type 2 diabetes mellitus with foot ulcer E11.621 Active confirmed 789045820 Problem 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 9 Active confirmed 656819933 Problem Menopause Z78.0 Active confirmed 923978621 Problem Recurrent UTI N39.0 Active confirmed 155923 001 ALLERGIES Allergen (clinical drug ingredient) Drug/Non Drug Allergy do cumented on EMR Reaction Allergy Type Onset Date Status [place] juice orange juice Hives Non Drug Allergy Acti ve naproxen Naprosyn([facility] Code:[address]-54) Nausea/Vomiting Drug Loy rgy Active ENCOUNTERS from 1960 to 2020-10-08 Encounter Location Date Provider Diagnosis [facility] [address] [phone] [place] [address] Sep, Truong Funes IMMUNIZATIONS Vaccine Route Administration Date [...] Notes Start Da te End Date Status Lisinopril 10 MG 1 tablet Orally Once a day Active Premarin 0.625 MG/GM as directed Vaginal three times a week for 30 days Dec, Unknown Torsemide 20 MG as directed Orally A ctive Lipitor 80 MG 1 tablet Orally Once a day for 30 day(s) Active Nystatin 430308 UNIT/GM 1 application Externally Twice a day to groin area Apr, Unknown Levothyroxine Sodium 50 MCG 1 tablet in the morning on an empty stomach Orally Once a day for 30 day(s) Active Metoprolol Tartrate 25 MG 1.5 tablet Orally Twice a day Active clonazePAM 1 MG 1 tablet Orally bid Active Nitroglycerin 0.4 MG as directed Sublingual Active Lantus 100 UNIT/ML 40 units am 40 units pm Subcutaneous daily Active Fenofibrate 160 MG 1 tablet with food Orally Once a day Unknown Wellbutrin SR 150 MG 1 tablet in the morning Orally Once a day f or 30 day(s) Not-Taking Furosemide 20 MG 1 tablet Orally Once a day Active Meloxicam 7.5 MG 1 tablet Orally bid Unknown Acetaminophen 325 MG 1 capsule as needed Orally every 6 hrs Not-Taking Macrobid 100 MG 1 cap Orally bid for 10 day(s) Jul, 0 Unknown Nystatin 789618 UNIT/GM 1 application Externally Twice a day for 30 Days Dec, Active Aspirin 325 MG 1 tablet Orally Once a day for 30 day(s) Not-Taking Aspir-81 Active Pyridium 200 MG 1 tablet after meals Orally Three times a day fo r 5 days Jul, Unknown Ondansetron HCl 4 MG 1 tab Orally q6h Unknown Glimepiride 4 4mg oral daily Active Amitriptyline HCl 50 MG 1 tablet Orally Once a day Active Methadone 10mg 1 tab po tid Active PROCEDURES No Information RESULTS No Results REASON FOR VISIT BLE arterial US MEDICAL (GENERAL) HISTORY Type Description Date [...] TREATMENT Next Appt Details Provider Name:Truong Funes, 11:00:00 AM, [address], , [place], [address], Insurance Providers Payer Name Payer Address Payer Phone Insured Name Patient Relati onship to Insured Coverage Start Date Coverage End Date MEDICARE COMPLETE [employer] [address] [address] [facility] [id number] MARLIN IVVAS self
--- OUTSIDE RECORDS SUMMARY | 2020-12-19 10:30 | CCD ---
Author Author [facility] Organization [facility] Address Unknown Phone Unavailable Care Team Providers Care Overage Shortage And Damage Clerk Name Role Phone Truong Funes Unavailable PROBLEMS Type Condition ICD9-CM Code AUG02-GD Code Onset Dates Condition S tatus W/U Status Risk SNOMED Code Notes Problem Chronic venous hypertension (idiopathic) with ulcer of left lower extremity I87.312 Active confirmed [id number] Problem Ingrowing right great toenail 703.0 Active confirm ed 649594396 Problem Non-pressure chronic ulcer o f other part of left lower leg with fat layer exposed L97.822 Active confirmed 69732385 Problem 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 of skin L97.421 Active confirmed 238134903 Problem Polyneuropathy G62.9 Active confirmed 99791 000 Problem Non-pressure chronic ulcer o f other part of left foot with fat layer exposed L97.522 Active confirmed 666579283 Problem Type 2 diabetes mellitus with foot ulcer E11.621 Active confirmed 425577794 Problem 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 9 Active confirmed 751070225 Problem Menopause Z78.0 Active confirmed 731164730 Problem Recurrent UTI N39.0 Active confirmed 124929 001 ALLERGIES Allergen (clinical drug ingredient) Drug/Non Drug Allergy do cumented on EMR Reaction Allergy Type Onset Date Status [place] juice orange juice Hives Non Drug Allergy Acti ve naproxen Naprosyn([facility] Code:[address]-82) Nausea/Vomiting Drug Loy rgy Active ENCOUNTERS from 1960 to 2020-10-10 Encounter Location Date Provider Diagnosis [facility] [address] [facility] [phone] [place] [address] Sep, Truong Funes IMMUNIZATIONS Vaccine Route Administration [...] a day for 30 day(s) Active Nystatin 683097 UNIT/GM 1 application Externally Twice a day [...] for 10 day(s) Jul, 0 Unknown Nystatin 883928 UNIT/GM 1 application Externally Twice a day [...] Information RESULTS No Results REASON FOR VISIT U/s Notification MEDICAL (GENERAL) HISTORY Type Description Date Medical [...] Name:Truong Funes, 11:00:00 AM, [address], , [place], [address], Insurance Providers Payer Name Payer Address Payer Phone Insured Name Patient Relati onship to Insured Coverage Start Date Coverage End Date MEDICARE COMPLETE [employer] [address] [address] [facility] [address] MARLIN VIVAS self
--- OUTSIDE RECORDS SUMMARY | 2020-12-19 10:30 | CCD ---
Author Author [facility] Organization [facility] Address Unknown Phone Unavailable Care Team Providers Care Auto Porter Name Role Phone Truong Funes Unavailable PROBLEMS Type Condition ICD9-CM Code AXT08-UQ Code Onset Dates Condition S tatus W/U Status Risk SNOMED Code Notes Problem Chronic venous hypertension (idiopathic) with ulcer of left lower extremity I87.312 Active confirmed [id number] Problem Ingrowing right great toenail 703.0 Active confirm ed 538924219 Problem Non-pressure chronic ulcer o f other part of left lower leg with fat layer exposed L97.822 Active confirmed 01416019 Problem 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 of skin L97.421 Active confirmed 459368014 Problem Polyneuropathy G62.9 Active confirmed 25861 000 Problem Non-pressure chronic ulcer o f other part of left foot with fat layer exposed L97.522 Active confirmed 418018848 Problem Type 2 diabetes mellitus with foot ulcer E11.621 Active confirmed 403064105 Problem 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 9 Active confirmed 746029483 Problem Menopause Z78.0 Active confirmed 716536972 Problem Recurrent UTI N39.0 Active confirmed 323418 001 ALLERGIES Allergen (clinical drug ingredient) Drug/Non Drug Allergy do cumented on EMR Reaction Allergy Type Onset Date Status [place] juice orange juice Hives Non Drug Allergy Acti ve naproxen Naprosyn([facility] Code:[address]-60) Nausea/Vomiting Drug Loy rgy Active ENCOUNTERS from 1960 to 2020-10-19 Encounter Location Date Provider Diagnosis [facility] [address] [facility] [phone] [place] [address] Sep, Truong Funes Chronic venous hypertension (idiopathic) with ulcer of left lower extremity I87.312 ; Non-pressure chronic ulcer of other part of left lower leg with fat layer exposed L97.822 ; Chronic venous hypertension (idiopathic) with ulcer of right lower extremity I87.311 and Non-pressure chronic ulcer of other part of right lower leg with fat layer exposed L97.812 IMMUNIZATIONS Vaccine Route Administration Date Status Influenza [...] No Information VITAL SIGNS Weight 184 lbs Sep, Height 60 in Sep, BMI 35.93 kg/m2 Sep, Heart Rate 62 /min Sep, Respiratory Rate 16 /min Sep, Temperature 97.3 degrees Fahrenheit Sep, Oximetry 100 Sep, Blood pressure systolic 138 mm Hg Sep, Blood pressure diastolic 61 mm Hg Sep, MEDICATIONS Medication SIG (Take, Route, Frequency, Duration) Notes Start Da te End Date Status Active Fenofibrate 160 MG 1 tablet with food Orally Once a day Unknown Acetaminophen 325 MG 1 capsule as needed Orally every 6 hrs Not-Taking clonazePAM 1 MG 1 tablet Orally bid Active Glimepiride 4 4mg oral daily Active Furosemide 20 MG 1 tablet Orally Once a day Active Lantus 100 UNIT/ML 40 units am 40 units pm Subcutaneous daily Active Macrobid 100 MG 1 cap Orally bid for 10 day(s) Jul, 0 Unknown Premarin 0.625 MG/GM as directed Vaginal three times a week for 30 days Dec, Unknown Meloxicam 7.5 MG 1 tablet Orally bid Unknown Torsemide 20 MG as directed Orally A ctive Levothyroxine Sodium 50 MCG 1 tablet in the morning on an empty stomach Orally Once a day for 30 day(s) Active Lisinopril 10 MG 1 tablet Orally Once a day Active Wellbutrin SR 150 MG 1 tablet in the morning Orally Once a day f or 30 day(s) Not-Taking Nitroglycerin 0.4 MG as directed Sublingual Active Aspirin 325 MG 1 tablet Orally Once a day for 30 day(s) Not-Taking Metoprolol Tartrate 25 MG 1.5 tablet Orally Twice a day Active Nystatin 073139 UNIT/GM 1 application Externally Twice a day to groin area Apr, Unknown Lipitor 80 MG 1 tablet Orally Once a day for 30 day(s) Active Amitriptyline HCl 50 MG 1 tablet Orally Once a day Active Ondansetron HCl 4 MG 1 tab Orally q6h Unknown Nystatin 071434 UNIT/GM 1 application Externally Twice a day for 30 Days Dec, Active Pyridium 200 MG 1 tablet after meals Orally Three times a day fo r 5 days Jul, Unknown Methadone 10mg 1 tab po tid Active PROCEDURES from 1960 to 2020-10-19 Procedure Date Ordered Result Body Site Medication: 4% Lidocaine topical cream (Anecream) 30 gm N/A RESULTS No Results REASON FOR VISIT right and left lower extremity MEDICAL (GENERAL) HISTORY Type Description Date Medical [...] Notes Treatment Notes Treatm ent Clinical Notes Sep, Chronic venous hypertension (idiopathic) with ulcer of left lower extremity (ICD-10 - I87.312) Sep, Non-pressure chronic ulcer o f other part of left lower leg with fat layer exposed (ICD-10 - L97.822) Sep, Chronic venous hypertension (idiopathic) with ulcer of right lower extremity (ICD-10 - I87.311) Sep, Non-pressure chronic ulcer o f other part of right lower leg with fat layer exposed (ICD-10 - L97.812) PLAN OF TREATMENT Next Appt Details 1 Week Reason: Provider Name:Truong Luisstephanie, 11:15:00 AM, [address], , [place], [address], Insurance Providers Payer Name Payer Address Payer Phone Insured Name Patient Relati onship to Insured Coverage Start Date Coverage End Date MEDICARE COMPLETE [facility] [address] [address] [facility] [id number] MARLIN VIVAS self
--- OUTSIDE RECORDS SUMMARY | 2020-12-19 10:30 | CCD ---
Author Author [facility] Organization [facility] Address Unknown Phone Unavailable Care Team Providers Care Instructional Writer Name Role Phone Truong Funes Unavailable PROBLEMS Type Condition ICD9-CM Code HMK33-UB Code Onset Dates Condition S tatus W/U Status Risk SNOMED Code Notes Problem Chronic venous hypertension (idiopathic) with ulcer of left lower extremity I87.312 Active confirmed [id number] Problem Ingrowing right great toenail 703.0 Active confirm ed 770226170 Problem Non-pressure chronic ulcer o f other part of left lower leg with fat layer exposed L97.822 Active confirmed 30267294 Problem 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 of skin L97.421 Active confirmed 965941810 Problem Polyneuropathy G62.9 Active confirmed 23714 000 Problem Non-pressure chronic ulcer o f other part of left foot with fat layer exposed L97.522 Active confirmed 628420907 Problem Type 2 diabetes mellitus with foot ulcer E11.621 Active confirmed 997076596 Problem 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 9 Active confirmed 555332923 Problem Menopause Z78.0 Active confirmed 092381803 Problem Recurrent UTI N39.0 Active confirmed 568918 001 ALLERGIES Allergen (clinical drug ingredient) Drug/Non Drug Allergy do cumented on EMR Reaction Allergy Type Onset Date Status [place] juice orange juice Hives Non Drug Allergy Acti ve naproxen Naprosyn([facility] Code:[address]-51) Nausea/Vomiting Drug Loy rgy Active ENCOUNTERS from 1960 to 2020-11-19 Encounter Location Date Provider Diagnosis [facility] [address] [facility] [phone] [place] [address] Oct, Truong Funes Chronic venous hypertension (idiopathic) with [...] No Information VITAL SIGNS Weight 184 lbs Oct, Weight-kg 83.46 kg Oct, Height 60 in Oct, BMI 35.93 kg/m2 Oct, Heart Rate 89 /min Oct, Respiratory Rate 18 /min Oct, Temperature 98.4 degrees Fahrenheit Oct, Oximetry 97 Oct, Blood pressure systolic 159 mm Hg Oct, Blood pressure diastolic 81 mm Hg Oct, MEDICATIONS Medication SIG (Take, Route, Frequency, Duration) [...] MG 1 tablet Orally bid Unknown Nystatin 514902 UNIT/GM 1 application Externally Twice a day [...] a day for 30 day(s) Active Nystatin 140384 UNIT/GM 1 application Externally Twice a day for 30 Days Dec, Active Furosemide 20 MG 1 tablet Orally Once a day Active Macrobid 100 MG 1 cap Orally bid for 10 day(s) Jul, 0 Unknown Aspirin 325 MG 1 tablet Orally Once a day for 30 day(s) Not-Taking PROCEDURES from 1960 to 2020-11-19 Procedure Date Ordered Result Body Site Medication: 4% Lidocaine topical cream (Anecream) 30 gm N/A RESULTS No Results REASON FOR VISIT bilateral lower leg MEDICAL (GENERAL) HISTORY Type Description Date Medical [...] Notes Treatment Notes Treatm ent Clinical Notes Oct, Chronic venous hypertension (idiopathic) with ulcer of left lower extremity (ICD-10 - I87.312) Oct, Non-pressure chronic ulcer o f other part of left lower leg with fat layer exposed (ICD-10 - L97.822) IPatria, documented the above order acting as a scribe for Dr. Funes. I have reviewed the above order , written by zohra Skaggs, and I verify it is accurate. Oct, Chronic venous hypertension (idiopathic) with ulcer of right lower extremity (ICD-10 - I87.311) Oct, Non-pressure chronic ulcer o f other part of right lower leg with fat layer exposed (ICD-10 - L97.812) Patria Saenz, documented the above order acting as a scribe for Dr. Funes. I have reviewed the above order , written by zohra Skaggs, and I verify it is accurate. PLAN OF TREATMENT Treatment Notes Assessment Notes Clinical Notes Non-pressure chronic ulcer of other part of left lower leg with fat layer exposed I, Patria Stewart, lenae d the above order acting as a scribe for Dr. Funes. I have reviewed the above order , written by zohra Skaggs, and I verify it is accurate. Non-pressure chronic ulcer of other part of right lower leg with fat layer exposed I, Patria Stewart, lenae d the above order acting as a scribe for Dr. Funes. I have reviewed the above order , written by zohra Skaggs, and I verify it is accurate. Next Appt Details 3 Weeks Reason: Provider Name:Truong Funes, 01:15:00 PM, [address], , [place], [address], Insurance Providers Payer Name Payer Address Payer Phone Insured Name Patient Relati onship to Insured Coverage Start Date Coverage End Date MEDICARE COMPLETE [facility] [address] [address] [facility] [id number] MARLIN VIVAS self
--- OUTSIDE RECORDS SUMMARY | 2020-12-19 10:30 | CCD | Continuity of Care Document ---
Author Author Jacki GALEANO MD Organization Unknown Address [address] [place] [address] Phone [phone] Care Team Providers Care Molder Inflated Ball Name Role Phone Truong Funes MD AUTM [phone] Jaci Vaughn M.D. AUTM [phone] Jaymie Sabillon AUTM [phone] Problems Active Problems Provider Date Essential hypertension Larry Galeano MD Onset: 021 Social History Type Date Description Comments Sex Unknown ETOH Use Denies alcohol use Tobacco Use Start: Unknown Smokes 1/2 Pack A Day 20 PLUS YE ARS Recreational Drug Use Denies Drug Use Tobacco Use Start: Unknown Report Cessation Counseling Was Provided Allergies, Adverse Reactions, Alerts Active Allergies Criticality Reaction | Severity Comments Date Karla Unable to assess criticality HIVES,DIARRHEA,STOMACH 04/23/2017 Medications Active Medications SIG Qnty Indications Ordering Provide r Date Omeprazole 40mg Capsules DR 1 by mouth every day 30caps R10.13 Larry Galeano MD 1 Lantus 100Unit/ML Solution 60 units every day Unknown Methadone HCL 10mg Tablets 1 by mouth three times a day Unknown Clonazepam 1mg Tablets 1 tab by mouth twice a day every night Unknown 00 Amitriptyline HCL 50mg Tablets 1 by mouth every night at bedtime Unknown 0 Glimepiride 4mg Tablets twice a day Unknown Lisinopril 10mg Tablets once a day Unknown Furosemide 20mg Tablets 20 mg once a day Unknown Metoprolol Succinate ER 50mg Tablets ER 24HR 1 by mouth every day Unknown 000 Atorvastatin Calcium 10mg Tablets 1 po daily Unknown Aspirin Adult Low Dose 81mg Tablet s DR 1 tab by mouth daily Unknown Levothyroxine Sodium 50mcg Tablets Unknown Immunizations Description No Information Available Vital Signs Date Vital Result Comment 10/30/2020 8:36am BP Systolic 162 mmHg BP Diastolic 85 mmHg Body Temperature 98.2 F Height 60 inches 5'0" Weight 188.12 lb BMI (Body Mass Index) 36.7 kg/m2 [place] Body Weight 100 lb Weight 85.334 kg BSA (Body Surface Area) 1.82 m2 09/25/2020 1:31pm BP Systolic 126 mmHg BP Diastolic 73 mmHg Heart Rate 73 /min Height 60 inches 5'0" Weight 183.12 lb BMI (Body Mass Index) 35.8 kg/m2 [place] Body Weight 100 lb Weight 83.066 kg BSA (Body Surface Area) 1.80 m2 Results Description No Information Available Procedures Date Code Description Status 10/30/2020 92673 Office/Outpatient Established Mo d MDM 30-39 Min Completed 09/25/2020 59245 Office/Outpatient Established Lo w MDM 20-29 Min Completed Medical Devices Description No Information Available Encounters Type Date Location Provider Dx Diagnosis Office Visit 10/30/2020 8:45a [facility] Misha Galeano MD K80.10 Calculus of gallbladder w ch ronic cholecyst w/o obstruction R10.13 Epigastric pain M62.00 Separation of muscle (nontra umatic), unspecified site Office Visit 09/25/2020 1:15p [facility] Misha Galeano MD R10.11 Right upper quadrant pain R10.13 Epigastric pain Assessments Date Code Description Provider 10/30/2020 K80.10 Calculus of gallbladder with cho lecystitis Larry Galeano MD 10/30/2020 R10.13 Burning epigastric pain Larry Galeano MD 10/30/2020 M62.00 Separation of muscle (nontraumat ic), unspecified site Larry Galeano MD 09/25/2020 R10.11 Right upper quadrant pain Ramesh Galeano MD 09/25/2020 R10.13 Burning epigastric pain Larry Galeano MD Plan of Treatment Future Appointment(s):* 01/07/2021 9:45 am - PRERNA Robins at [facility] * 12/24/2020 10:00 am - Larry Galeano MD at [facility] 10/30/2020 - Larry Galeano MD* K80.10 Calculus of gallbladder with cholecystitis* Comments:* I told her it could very well be that she has 2 things going on which includes the biliary colic attack secondary to the gallstones and also some dyspeptic type symptoms which is somewhat responsive to the omeprazole but not totally. She would like to pursue the gallbladder aspect first as she fears having severe biliary colic attacks that may lead her to the emergency room needing emergency surgery. I reviewed with her the results of the ultrasound showing cholelithiasis likewise mildly dilated common bile duct of 0.9 cm. We will go ahead and proceed and schedule her for robotic assisted laparoscopic cholecystectomy. Intraoperatively I also plan to do a cholangiogram to verify that there are no stones or other abnormalities at the level of the common bile duct.I discussed with the pat ient the details of the proposed procedure, the benefits of performing the procedure, the most common risks on doing the procedure. This may include risks for bleeding, infection, bile duct injury, bile leak, bowel or vascular injuries. I have given her a chance to ask questions, voice out concerns. Patient has agreed to proceed. Likewise we discussed the expected postoperative course as well as postoperative sequelae of removing the gallbladder including sensation of fecal urgency sometimes, loose stools or diarrhea. Most of the time this reverts back to what is usual for her in a few months. Rarely dismay being in normal for them postoperatively. Patient has consented to the surgery. * R10.13 Burning epigastric pain* Comments:* Patient reports that the burning epigastric discomfort seems to be improving with the omeprazole. She has been trying to avoid spicy foods. She still has some breakthrough symptoms, burping, bloating. I told her to double her dose for the omeprazole and take 40 mg in the morning and 40 mg in the evening. We will see how this responds to the medication so as after removal of the gallbladder. If this does not fully resolve may need endoscopy to further elucidate the problem. * M62.00 Separation of muscle (nontraumatic), unspecified site* Comments:* She still somewhat fixated with the asymmetry on her abdominal wall. Her right abdominal wall is more prominent than the left that initially another provider thought that she has a hernia which actually how she got to my office. She is also thinking that this may improve after the cholecystectomy. I pointed out to her that most likely the gallbladder has nothing to do with this. This is either just from some disparity in the adipose tissue distribution but more likely some disparity within the tone of the abdominal wall muscles. She tells me that she has a history of chickenpox as well as measles. She does not really have herpes zoster symptoms but some people who developed zoster in the band over that area may develop weakness sort of the enervation. I pointed out to her that to address the diastases still has the asymmetry in the fat distribution she will need abdominal wall contouring usually by a plastic surgeon but this is considered cosmetic and her insurance may not cover it. She is not interested in that. Functional Status Description No Information Available Mental Status Description No Information Available Referrals Description No Information Available
--- OUTSIDE RECORDS SUMMARY | 2020-12-19 10:30 | CCD | Continuity of Care Document ---
Author Author Jacki GALEANO MD Organization Unknown Address [address] [place] [address] Phone [phone] Care Team Providers Care Events And Promotions Assistant Name Role Phone Truong Funes MD AUTM [phone] Jaci Vaughn M.D. AUTM [phone] No PCP AUTM Unavailable Problems Active Problems Provider Date Essential hypertension Larry Galeano MD Onset: 021 Social History Type Date Description Comments Sex Unknown ETOH Use Denies alcohol use Tobacco Use Start: Unknown Smokes 1/2 Pack A Day 20 PLUS YE ARS Recreational Drug Use Denies Drug Use Tobacco Use Start: Unknown Report Cessation Counseling Was Provided Smoking Status Reviewed: 11/08/18 Report Cessation Counseling W as Provided Allergies, Adverse Reactions, Alerts Active Allergies Criticality Reaction | Severity Comments Date Luz Elenarosjose armando Unable to assess criticality HIVES,DIARRHEA,STOMACH 04/23/2017 Medications Active Medications SIG Qnty Indications Ordering Provide r Date Omeprazole 40mg Capsules 1 by mouth every day 30caps R10.13 [...] 24HR 1 by mouth every day Unknown 0 000 Atorvastatin Calcium 10mg Tablets 1 po [...] lb BMI (Body Mass Index) 36.7 kg/m2 [place] Body Weight 100 lb Weight 85.334 kg BSA (Body Surface Area) 1.82 m2 09/25/2020 1:31pm BP Systolic 126 mmHg BP Diastolic 73 mmHg Heart Rate 73 /min Height 60 inches 5'0" Weight 183.12 lb BMI (Body Mass Index) 35.8 kg/m2 [place] Body Weight 100 lb Weight 83.066 kg BSA (Body Surface Area) 1.80 m2 Results Description No Information Available Procedures Date Code Description Status 10/30/2020 87983 Office/Outpatient Established Mo d MDM 30-39 Min Completed Medical Devices Description No Information Available Encounters Type Date Location Provider Dx Diagnosis Office Visit 10/30/2020 8:45a [facility] Edu monika Galeano MD K80.10 Calculus of gallbladder w ch ronic cholecyst w/o obstruction R10.13 Epigastric pain M62.00 Separation of muscle (nontra umatic), unspecified site Assessments Date Code Description Provider 10/30/2020 K80.10 [...] 01/07/2021 9:45 am - PRERNA Robins at [facility] * 12/24/2020 10:00 am - Larry Galeano MD at [facility] 09/25/2020 - Larry Galeano MD* R10.11 Right upper quadrant pain* Comments: * 1. Recommend US of gallbladder to rule out gallstones as cause of her epigastric and right upper quadrant pain.2. trial of prevacid x 6 weeks.3. follow up in one month * R10.13 Burning epigastric pain* New Medication:* Omeprazole 40 mg - 1 by mouth every day Functional Status Description No Information Available Mental Status Description No Information Available Referrals Description No Information Available
--- OUTSIDE RECORDS SUMMARY | 2020-12-19 10:30 | CCD | Continuity of Care Document ---
Author Author Jacki GALEANO MD Organization Unknown Address [address] [place] [address] Phone [phone] Care Team Providers Care Crm Marketing Analyst Name Role Phone Truong Funes MD AUTM [phone] Jaci Vaughn M.D. AUTM [phone] Problems Active Problems Provider Date Essential hypertension Lrary Galeano MD Onset: 021 Social History Type Date Description Comments Sex Unknown ETOH Use Denies alcohol use Tobacco Use Start: Unknown Smokes 1/2 Pack A Day 20 PLUS YE ARS Recreational Drug Use Denies Drug Use Tobacco Use Start: Unknown Report Cessation Counseling Was Provided Smoking Status Reviewed: 11/08/18 Report Cessation Counseling W as Provided Allergies, Adverse Reactions, Alerts Active Allergies Reaction Severity Comments Date Naprosyn HIVES,DIARRHEA,STOMACH 04/23 Medications Active Medications SIG Qnty Indications Ordering [...] Available Vital Signs Date Vital Result Comment 09/25/2020 1:31pm BP Systolic 126 mmHg BP Diastolic 73 mmHg Heart Rate 73 /min Height 60 inches 5'0" Weight 183.12 lb BMI (Body Mass Index) 35.8 kg/m2 [place] Body Weight 100 lb Weight 83.066 kg BSA (Body Surface Area) 1.80 m2 06/04/2017 9:14am BP Systolic 129 mmHg BP Diastolic 75 mmHg Height 61 inches 5'1" Weight 185.38 lb BMI (Body Mass Index) 35.0 kg/m2 [place] Body Weight 105 lb Weight 84.086 kg BSA (Body Surface Area) 1.83 m2 Results Description No Information Available Procedures Description No Information Available Medical Devices Description No Information Available Encounters Description No Information Available Assessments Date Code Description Provider 09/25/2020 R10.11 Right upper quadrant pain Ramesh Galeano MD 09/25/2020 R10.13 Burning epigastric pain Larry Galeano MD Plan of Treatment 09/25/2020 - Larry Galeano MD* R10.11 Right [...]
--- OUTSIDE RECORDS SUMMARY | 2020-12-19 10:30 | CCD ---
Author Author [facility] Organization [facility] Address Unknown Phone Unavailable Care Team Providers Care Renewals Specialist Name Role Phone Truong Funes Unavailable PROBLEMS Type Condition ICD9-CM Code [id number] Code Onset Dates Condition S tatus W/U Status Risk SNOMED Code Notes Problem Chronic venous hypertension (idiopathic) with ulcer of left lower extremity I87.312 Active confirmed 790812214236456 Problem Ingrowing right great toenail 703.0 Active confirm ed 766228256 Problem Non-pressure chronic ulcer o f other part of left lower leg with fat layer exposed L97.822 Active confirmed 39997406 Problem 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 of skin L97.421 Active confirmed 228678722 Problem Polyneuropathy G62.9 Active confirmed 28156 000 Problem Non-pressure chronic ulcer o f other part of left foot with fat layer exposed L97.522 Active confirmed 352025179 Problem Type 2 diabetes mellitus with foot ulcer E11.621 Active confirmed 362706382 Problem 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 9 Active confirmed 289624023 Problem Menopause Z78.0 Active confirmed 946548808 Problem Recurrent UTI N39.0 Active confirmed 788629 001 ALLERGIES Allergen (clinical drug ingredient) Drug/Non Drug Allergy do cumented on EMR Reaction Allergy Type Onset Date Status [place] juice orange juice Hives Non Drug Allergy Acti ve naproxen Naprosyn([facility] Code:[address]-43) Nausea/Vomiting Drug Loy rgy Active ENCOUNTERS from 1960 to 2020-10-05 Encounter Location Date Provider Diagnosis [facility] [address] [facility] [phone] [place] [address] Sep, Truong Funes Chronic venous hypertension (idiopathic) [...] Sep, BMI 35.93 kg/m2 Sep, Heart Rate 78 /min Sep, Respiratory Rate 18 /min Sep, Temperature 95.2 degrees Fahrenheit Sep, Oximetry 100 Sep, Blood pressure systolic 110 mm Hg Sep, Blood pressure diastolic 53 mm Hg Sep, MEDICATIONS Medication SIG (Take, [...] a day for 30 day(s) Active Nystatin 136461 UNIT/GM 1 application Externally Twice a day [...] for 10 day(s) Jul, 0 Unknown Nystatin 131073 UNIT/GM 1 application Externally Twice a day [...] po tid Active PROCEDURES from 1960 to 2020-10-05 Procedure Date Ordered Result Body Site Medication: [...] exposed (ICD-10 - L97.812) PLAN OF TREATMENT Treatment Notes Test Name Order Date Lower Extremity Arterial US 2020-10-02 Next Appt Details 2 Weeks Reason: Provider Name:Truong Funes, 11:00:00 AM, [address], , [place], [address], Insurance Providers Payer Name Payer Address Payer Phone Insured Name Patient Relati onship to Insured Coverage Start Date Coverage End Date MEDICARE COMPLETE [facility] [address] [address] [facility] [id number] MARLIN VIVAS self
--- OUTSIDE RECORDS SUMMARY | 2020-12-19 10:30 | CCD ---
Author Author [facility] Organization [facility] Address Unknown Phone Unavailable Care Team Providers Care Stable Manager Name Role Phone Truong Funes Unavailable PROBLEMS Type Condition ICD9-CM Code [id number] Code Onset Dates Condition S tatus W/U Status Risk SNOMED Code Notes Problem Chronic venous hypertension (idiopathic) with ulcer of left lower extremity I87.312 Active confirmed 043825169401101 Problem Ingrowing right great toenail 703.0 Active confirm ed 023585565 Problem Non-pressure chronic ulcer o f other part of left lower leg with fat layer exposed L97.822 Active confirmed 91767755 Problem 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 of skin L97.421 Active confirmed 970081693 Problem Polyneuropathy G62.9 Active confirmed 31401 000 Problem Non-pressure chronic ulcer o f other part of left foot with fat layer exposed L97.522 Active confirmed 107092091 Problem Type 2 diabetes mellitus with foot ulcer E11.621 Active confirmed 194658743 Problem 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 9 Active confirmed 391283101 Problem Menopause Z78.0 Active confirmed 644222697 Problem Recurrent UTI N39.0 Active confirmed 066003 001 ALLERGIES Allergen (clinical drug ingredient) Drug/Non Drug Allergy do cumented on EMR Reaction Allergy Type Onset Date Status [place] juice orange juice Hives Non Drug Allergy Acti ve naproxen Naprosyn([facility] Code:[address]-59) Nausea/Vomiting Drug Loy rgy Active ENCOUNTERS from 1960 to 2020-11-01 Encounter Location Date Provider Diagnosis [facility] [address] [facility] [phone] [place] [address] Oct, Truong Funes Chronic venous hypertension (idiopathic) [...] Oct, BMI 35.93 kg/m2 Oct, Heart Rate 85 /min Oct, Respiratory Rate 17 /min Oct, Temperature 88.1 degrees Fahrenheit Oct, Oximetry 100 Oct, Blood pressure systolic 142 mm Hg Oct, Blood pressure diastolic 63 mm Hg Oct, MEDICATIONS Medication SIG (Take, Route, Frequency, Duration) Notes Start Da te End Date Status Lantus 100 UNIT/ML 40 units am 40 units pm Subcutaneous daily Active Acetaminophen 325 MG 1 capsule as needed Orally every 6 hrs Not-Taking Wellbutrin SR 150 MG 1 tablet in the morning Orally Once a day f or 30 day(s) Not-Taking clonazePAM 1 MG 1 tablet Orally bid Active Amitriptyline HCl 50 MG 1 tablet Orally Once a day Active Nitroglycerin 0.4 MG as directed Sublingual Active Fenofibrate 160 MG 1 tablet with food Orally Once a day Unknown Levothyroxine Sodium 50 MCG 1 tablet in the morning on an empty stomach Orally Once a day for 30 day(s) Active Aspirin 325 MG 1 tablet Orally Once a day for 30 day(s) Not-Taking Macrobid 100 MG 1 cap Orally bid for 10 day(s) Jul, 0 Unknown Lisinopril 10 MG 1 tablet Orally Once a day Active Torsemide 20 MG as directed Orally A ctive Nystatin 860093 UNIT/GM 1 application Externally Twice a day for 30 Days Dec, Active Pyridium 200 MG 1 tablet after meals Orally Three times a day fo r 5 days Jul, Unknown Meloxicam 7.5 MG 1 tablet Orally bid Unknown Lipitor 80 MG 1 tablet Orally Once a day for 30 day(s) Active Furosemide 20 MG 1 tablet Orally Once a day Active Nystatin 471434 UNIT/GM 1 application Externally Twice a day to groin area Apr, Unknown Ondansetron HCl 4 MG 1 tab Orally q6h Unknown Glimepiride 4 4mg oral daily Active Aspir-81 Active Methadone 10mg 1 tab po tid Active Metoprolol Tartrate 25 MG 1.5 tablet Orally Twice a day Active Premarin 0.625 MG/GM as directed Vaginal three times a week for 30 days Dec, Unknown PROCEDURES from 1960 to 2020-11-01 Procedure Date Ordered Result Body Site Medication: 4% Lidocaine topical cream (Anecream) 30 gm N/A RESULTS No Results REASON FOR VISIT BLE wounds MEDICAL (GENERAL) HISTORY Type Description Date Medical [...] with fat layer exposed (ICD-10 - L97.822) Oct, Chronic venous hypertension (idiopathic) with ulcer of right lower extremity (ICD-10 - I87.311) Oct, Non-pressure chronic ulcer o f other part of right lower leg with fat layer exposed (ICD-10 - L97.812) PLAN OF TREATMENT Next Appt Details 2 Weeks Reason: Provider Name:Truong Smithstephanie, 03:00:00 PM, [address], , [place], [address], Insurance Providers Payer Name Payer Address Payer Phone Insured Name Patient Relati onship to Insured Coverage Start Date Coverage End Date MEDICARE COMPLETE [facility] [address] [address] [facility] [id number] MARLIN VIVAS self
--- OUTSIDE RECORDS SUMMARY | 2020-12-19 10:30 | CCD ---
Author Author [facility] Organization [facility] Address Unknown Phone Unavailable Care Team Providers Care Skiff Operator Name Role Phone Truong Funes Unavailable PROBLEMS Type Condition ICD9-CM Code [id number] Code Onset Dates Condition S tatus W/U Status Risk SNOMED Code Notes Problem Chronic venous hypertension (idiopathic) with ulcer of left lower extremity I87.312 Active confirmed [id number] Problem Ingrowing right great toenail 703.0 Active confirm ed 088200456 Problem Non-pressure chronic ulcer o f other part of left lower leg with fat layer exposed L97.822 Active confirmed 02586298 Problem 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 of skin L97.421 Active confirmed 262618351 Problem Polyneuropathy G62.9 Active confirmed 43539 000 Problem Non-pressure chronic ulcer o f other part of left foot with fat layer exposed L97.522 Active confirmed 755127793 Problem Type 2 diabetes mellitus with foot ulcer E11.621 Active confirmed 175659123 Problem 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 9 Active confirmed 527305007 Problem Menopause Z78.0 Active confirmed 775454405 Problem Recurrent UTI N39.0 Active confirmed 831410 001 ALLERGIES Allergen (clinical drug ingredient) Drug/Non Drug Allergy do cumented on EMR Reaction Allergy Type Onset Date Status [place] juice orange juice Hives Non Drug Allergy Acti ve naproxen Naprosyn([facility] Code:[address]-82) Nausea/Vomiting Drug Loy rgy Active ENCOUNTERS from 1960 to 2020-09-24 Encounter Location Date Provider Diagnosis [facility] [address] [facility] [phone] [place] [address] Sep, Truong Funes IMMUNIZATIONS Vaccine Route Administration [...] Notes Start Da te End Date Status Levothyroxine Sodium 50 MCG 1 tablet in the morning on an empty stomach Orally Once a day for 30 day(s) Active Aspirin 325 MG 1 tablet Orally Once a day for 30 day(s) Not-Taking Lisinopril 10 MG 1 tablet Orally Once a day Active Amitriptyline HCl 50 MG 1 tablet Orally Once a day Active Glimepiride 4 4mg oral daily Active Furosemide 20 MG 1 tablet Orally Once a day Active Meloxicam 7.5 MG 1 tablet Orally bid Unknown Nystatin 653562 UNIT/GM 1 application Externally Twice a day for 30 Days Dec, Active Wellbutrin SR 150 MG 1 tablet in the morning Orally Once a day f or 30 day(s) Not-Taking Nitroglycerin 0.4 MG as directed Sublingual Active Pyridium 200 MG 1 tablet after meals Orally Three times a day fo r 5 days Jul, Unknown Nystatin 918341 UNIT/GM 1 application Externally Twice a day to groin area Apr, Unknown clonazePAM 1 MG 1 tablet Orally bid Active Aspir-81 Active Ondansetron HCl 4 MG 1 tab Orally q6h Unknown Torsemide 20 MG as directed Orally A ctive Fenofibrate 160 MG 1 tablet with food Orally Once a day Unknown Premarin 0.625 MG/GM as directed Vaginal three times a week for 30 days Dec, Unknown Methadone 10mg 1 tab po tid Active Lantus 100 UNIT/ML 40 units am 40 units pm Subcutaneous daily Active Acetaminophen 325 MG 1 capsule as needed Orally every 6 hrs Not-Taking Metoprolol Tartrate 25 MG 1.5 tablet Orally Twice a day Active Lipitor 80 MG 1 tablet Orally Once a day for 30 day(s) Active Macrobid 100 MG 1 cap Orally bid for 10 day(s) Jul, 0 Unknown PROCEDURES No Information RESULTS No Results REASON FOR VISIT R/S [facility] APT MEDICAL (GENERAL) HISTORY Type Description Date Medical [...] Name:Truong Funes, 01:15:00 PM, [address], , [place], [address], Insurance Providers Payer Name Payer Address Payer Phone Insured Name Patient Relati onship to Insured Coverage Start Date Coverage End Date MEDICARE COMPLETE [facility] [address] [address] [facility] [phone] MARLIN VIVAS self
--- NOTE | 2020-12-19 11:02 | REP ---
INDICATION: FALL. COMPARISON: Chest 08/13/2017. TECHNIQUE: Four views right ribs, frontal view chest. FINDINGS: There is no evidence of right rib fracture or bone lesion. No infiltrate is seen in either lung. The heart is normal in size. The mediastinal silhouette is unchanged. Multiple sternal wires are present as well as mediastinal clips. IMPRESSION: No evidence of right rib fracture. <Electronically signed by Gavin Sanders > 12/19/20 1057
[2020-12-19] MEDS ORDERED: LIDOCAINE 4% CREAM 5GM (LMX4) TOP ONE (13:15)
[2020-12-19] MEDS ORDERED: ACETAMINOPHEN 500 MG TAB PO ONE (13:15)
[2020-12-19] MEDS ORDERED: CAPS0.022 TOP (13:18)
[2020-12-19] MEDS ORDERED: ANEC4CRE3 TOP (13:18)
[2020-12-19 13:37] VITALS: BP 115/56
== END 2020-12-19 14:08 | disposition home or self-care (01) ==
LOC: M ED 10:19
DX: R07.89 Other chest pain (principal); W01.0XXA Fall on same level from slipping, tripping and stumbling without subsequent striking against object, initial encounter; Y92.009 Unspecified place in unspecified non-institutional (private) residence as the place of occurrence of the external cause; Y93.9 Activity, unspecified; Y99.9 Unspecified external cause status; Z20.822 Contact with and (suspected) exposure to COVID-19; E11.21 Type 2 diabetes mellitus with diabetic nephropathy; I25.2 Old myocardial infarction; I10 Essential (primary) hypertension; Z79.4 Long term (current) use of insulin; Z79.899 Other long term (current) drug therapy; Z79.82 Long term (current) use of aspirin
CPT/HCPCS: 71101; 99284; U0003

== ENCOUNTER → 2020-12-19 | Outpatient (CLI) | payer MEDICARE ==
[~2020-12-19] MED LIST changes: -POTA-149 PO; +POTA10TA16 PO
== END ==
LOC: M LABSMTC 09:51
PROVIDERS: ATTEND Anesthesiology
DX: Z01.812 Encounter for preprocedural laboratory examination (principal); Z20.822 Contact with and (suspected) exposure to COVID-19

== ENCOUNTER 2020-12-24 06:11 | Day surgery (SDC) | payer MEDICARE ==
[~2020-12-24] VITALS: Ht 152.4 cm; Wt 82.6 kg
[~2020-12-24 06:11] MED LIST changes: +AMPICILLIN SOD/SULBACTAM SOD 3 GM in D5W MINI-BAG PLUS 100 ML IV ONE; +ANEC4CRE3 TOP; +CAPS0.022 TOP; +INDOCYANINE GREEN 25MG VIAL (IC-GREEN) IV ONE; +LIDOCAINE 1% MDV 20ML VIAL SQ PRN; +LR 1,000 ML IV ONE; +OMEP-221
[2020-12-24] MEDS ORDERED: MIDAZOLAM INJ 2MG/2ML VIAL (J2250 PER 1MG) As Ordered ONE (06:51)
[2020-12-24] MEDS ORDERED: ONDANSETRON 4MG/2ML VIAL As Ordered ONE (06:51)
[2020-12-24] MEDS ORDERED: fentaNYL 100 MCG/2 ML INJECTION (J3010) As Ordered ONE (06:51)
[2020-12-24] MEDS ORDERED: LIDOCAINE 2% 100MG/5ML SDV (FOR ANES.) As Ordered ONE (06:52)
[2020-12-24] MEDS ORDERED: KETOROLAC 60MG 2ML VIAL As Ordered ONE (06:52)
[2020-12-24] MEDS ORDERED: PHENYLephrine 500MCG 5ML (100MCG/ML) SYRINGE As Ordered ONE (06:52)
[2020-12-24] MEDS ORDERED: propofoL 200 MG/20 ML VIAL As Ordered ONE (06:52)
[2020-12-24] MEDS ORDERED: ePHEDrine SULFATE 25 MG/5 ML(5MG/ML) SYRINGE As Ordered ONE ×2 (06:52→11:59)
[2020-12-24] MEDS ORDERED: dexameTHASONE 4 MG/ML 1ML VIAL (J1100 PER 1MG) As Ordered ONE (06:52)
[2020-12-24] MEDS ORDERED: ROCURONIUM BROMIDE 50 MG/5 ML VIAL As Ordered ONE ×2 (06:52→09:52)
[2020-12-24] MEDS ORDERED: SUGAMMADEX SODIUM 500 MG/5 ML VIAL (BRIDION) As Ordered ONE (06:52)
[2020-12-24] MEDS ORDERED: BUPIVACAINE HCL 0.25% 30ML VIAL As Ordered ONE (07:07)
[2020-12-24] MEDS ORDERED: LIDOCAINE 1% SDV 30ML VIAL As Ordered ONE (07:07)
[2020-12-24] MEDS ORDERED: CONRAY-60 60% 50ML VIAL (Q9961) As Ordered ONE (07:08)
[2020-12-24] MEDS ORDERED: ACETAMINOPHEN 1000MG 100ML IV BTL (OFIRMEV) (J0131 PER 10MG) As Ordered ONE (07:48)
[2020-12-24] MEDS ORDERED: GLUCAGON INJ 1MG VIAL As Ordered ONE (09:36)
[2020-12-24] MEDS ORDERED: oxyCODONE 5MG TAB PO PRN (11:05)
[2020-12-24] MEDS ORDERED: fentaNYL 100 MCG/2 ML INJECTION (J3010) IV PRN (11:05)
[2020-12-24] MEDS ORDERED: NORCO, ANEXSIA 5/325MG TABLET (HYDROcodone/ACETAMINOPHEN) PO PRN ×2 (11:05)
[2020-12-24] MEDS ORDERED: LR 1,000 ML IV SCH (11:05)
[2020-12-24] MEDS: LABETALOL 100MG/20ML VIAL IV PRN ×4 (11:15→11:57)
[2020-12-24] MEDS ORDERED: MORPHINE 4 MG/ML 1ML VIAL/SYRINGE (J2270) IV PRN (11:15)
--- NOTE | 2020-12-24 13:39 | ROOPDOC ---
[facility] Report Of Operation Report of Operation DATE OF PROCEDURE: 12/24/20 PREPROCEDURE DIAGNOSES: Cholelithiasis, right upper quadrant pain. POSTPROCEDURE DIAGNOSES: Cholelithiasis, chronic cholecystitis, hydrops of the gallbladder. PROCEDURE PERFORMED: Robotic assisted laparoscopic cholecystectomy with use of ICG for biliary tract identification with intraoperative cholangiogram. SURGEON: Larry Galeano MD, RUG DESIGNER: THOR Cardozo Ms. assisted me with the placement of ports, management of the robotic arms, instrument exchange, insertion of the cholangiogram catheter, extraction of the robot, closure of the port sites ANESTHESIA: General endotracheal anesthesia ESTIMATED BLOOD LOSS: Approximately 20 mL. COMPLICATIONS: None. REMARKS: 60-year-old female complaining of intermittent right upper quadrant discomfort, swelling at that area, known to have cholelithiasis, has put off surgery to take care of her was recently tied but has increasing symptoms. She also has fluctuating liver function test as well as mildly enlarged common bile duct at 9 mm. We plan to do laparoscopic cholecystectomy with the da Tom robot as well as do an intraoperative cholangiogram.. FINDINGS: Markedly distended gallbladder occupying more than 6 inches below the liver edge. No ischemia. Distention appears chronic. Moderate amount of omentum encasing the mid lower portion of the distended gallbladder. Wall is only mildly thickened. Multiple stones including a large stone at the neck of the gallbladder. Markedly enlarged cystic duct. On cholangiogram the size of the cystic duct is noted. There is tapering of the common bile duct without any notable stenosis or stones in the biliary tree. SPECIMENS REMOVED: Gallbladder. DESCRIPTION OF PROCEDURE: Patient was given a dose Unasyn 3 g IV preoperatively. 25 mg of ICG was give n IV in the preop area. She was brought to the operating room, laid supine on the table. She has bilateral leg edema with venous stasis ulcers and we are not able to place compression device on her lower extremities. General endotracheal anesthesia started. His abdomen then prepped and draped in usual sterile fashion. Surgical timeout was performed prior to confirm right procedure, right patient identification and other necessary information prior to starting surgery. Entry into the abdomen done through an incision below and slightly to the left of the umbilical cleft. A Veress needle was inserted with a controlled fashion. CO2 insufflation started to pressure 15 mmHg. Using the same incision an 8 mm robotic trochar was placed under direct vision laparoscope. The area underneath the insertion site was inspected and no injury found. She was then placed on a 10 reverse Trendelenburg, tilted slightly towards the left side. Under direct vision I placed three more 8 mm trochars along a row level to the camera port site. A 5 mm right upper quadrant port was placed in anticipation for intraoperative cholangiogram. A transversus abdominis plane block was then performed bilaterally using the lidocaine/marcaine mixture under laparoscopic guidance. 20 mLs of the mixture placed on each side. The da Tom robot tower was then maneuvered in place and the trochars docked to the robot. After positioning the instruments inside of the abdomen, and scrubbed in to control of the camera and robotic instruments at the surgeon's console while my child care center assistant director remains on the field. Operative findings: Liver appears moderately enlarged, fatty replaced, smooth appearing without any noticeable lesions on the surface. The gallbladder extends about 5 or 6 inches below the edge of the liver almost margin and initially looking like part of the transverse colon. Omentum encasing the underside of the liver also on both medial and lateral sides.. Thick omental adhesions are covering the underside of the liver where the gallbladder was located. On firefly, despite receiving a large amount of ICG, patient gallbladder did not illuminate. Good examination of the liver. Due to the large size of the gallbladder, the common hepatic and common bile duct are not well visualized. I initially tried retracting gallbladder superiorly. Both due to her round abdominal contour, the enlargement of the liver and the distention gallbladder, I could only lift the gallbladder up midway and the encased omentum precludes view of the lower body and infundibulum of the gallbladder. Thus I switched to a dome down approach. The peritoneum over the edge of the fundus of the gall bladder to the liver was opened up and we dissected the gallbladder posteriorly off the liver bed going both anteriorly medially and laterally. I then had my child care center assistant director aspirate the contents of the gallbladder to decompress the gallbladder. The aspirate appears mucoid, thin bilious consistent with hydrops of the gallbladder. Upon decompression I continued lysing the omental adhesions surrounding the underside of the gallbladder as I tried to superiorly retract the gallbladder to approach with the neck of the gallbladder. also there was some ICG illumination of the lower side of the gallbladder upon decompression. There is a large stone at the neck and infundibulum of the gallbladder. I could make up the common bile duct as well as the distal portion of the cystic duct. I continued dissecting the omental adhesions away from the neck and infundibulum of the gallbladder. Eventually had a better view of the lower portion of the body at the lateral edge. I proceeded extending the peritoneal dissection both medially and laterally at the level of the neck of the gallbladder staying above the Rouviere sulcus while switching between near infrared light and white light to help with my dissection as I approach the hepatocystic triangle. The hepatocystic lymph node is identified and underneath that the course of the cystic artery is identified and I circumferentially dissected this. Aided with lateral retraction of the infundibulum, the junction of the cystic duct and gallbladder is likewise circumferentially dissected and the medial attachments between the artery and cystic duct was cleared off. The cystic artery is notably markedly e nlarged. On firefly the proximal portion of the cystic duct seems to be able to eliminate but the distal portion or the one close to the gallbladder does not illuminate well signifying the possibility that there are cystic duct stones. I palpated the area and milked the stones out of the cystic duct towards the gallbladder. I continued dissecting circumferentially the cystic duct proximally. As I continued clearing up the fibrotic tissues and adipose tissues within the hepatocystic triangle I continued also dissecting the neck of the gallbladder posteriorly medial to lateral to clear off the cystic plate. Once an adequate amount of the length of the cystic duct has been freed up, I decided to take the cystic artery in between Hem-o-marimar clips. This allowed me to continue dissecting posteriorly the fibrotic tissues behind the neck of the gallbladder. A large Hem-o-marimar clip was needed to encircle the cystic duct at the junction of the gallbladder. A cystotomy was then created. Once cystotomy I was able to express several small black cystic duct stones and there was better flow bile afterwards. I had my child care center assistant director introduced the cholangiogram catheter and I placed this through the cystic duct. The balloon was inflated. I tested the placement of a cholangiogram catheter with saline and there was leakage around the cystotomy opening. So I had this temporarily tied off with a 2-0 Vicryl to create a seal. We then performed a cholangiogram. The abdomen was deflated temporarily. She was repositioned in slight decubitus position turned towards the left side. The C arm was positioned on the patient's left side. A 30% Conray mixture was used for the cholangiogram. Under fluoroscopy initially there was difficulty opacifying the biliary tree due to the large size of the cystic duct and probably some small leakage. The cystic duct began to opacify and then the common hepatic duct and proximal radicles of the left and right hepatic ducts. There are we were able to opacify the common bile duct and I was able to visualize contrast go through the duodenum. I did not detect any notable stricture, stones though there is some smooth tapering of the common bile duct. With this finding the cholangiogram portion is terminated. Patient was then repositioned back in the mild reverse Trendelenburg position. The abdomen was reinflated. The robotic tower was redocked and instruments placed back in the abdomen. The 2-0 Vicryl was trimmed and the cholangiogram catheter removed after the balloon was deflated. Proximal to the cystotomy to large Hem-o-marimar clips were placed and the cystotomy was completed to divide the cystic duct. At this point the rest of the gallbladder was removed from the liver bed as he has already been correction removed both superiorly and inferiorly. The liver bed was inspected. No gross bleeding noted. On firefly, I did not detect any leakage at the cystic duct stump. The course of the common hepatic and common bile duct is visualized. An Endo Catch bag was placed through the right most lateral port and the gallbladder placed and extracted with enlargement of the opening of the port to accommodate the large stone in the gallbladder. After extraction the fascial defect was closed with 2-0 V lock in a running fashion. While we were extracting we had a good amount of bile spill in the abdomen. The abdomen was irrigated until all bilious fluid were removed and we had clear returns. The abdomen was then deflated all ports removed. The skin incisions were closed with 4-0 Monocryl subcutaneous thickening fashion. The drain was secured to the skin with 2-0 silk. Patient is stable throughout the procedure. Dermabond was used for postoperative dressing. He was promptly awakened, extubated and brought to recovery room in stable condition. LARRY GALEANO MD Dec 24, 2020 13:39
[2020-12-24 14:40] VITALS: BP 122/63
--- NOTE | 2020-12-24 14:43 | REP ---
INDICATION: CHOLELITHIASIS, BILIARY COLIC. COMPARISON: Ultrasound 10/22/2020. TECHNIQUE: Two C-arm views performed. FINDINGS: Contrast is seen in the cystic duct, common bile duct and central intrahepatic ducts. The distal end of the common bile duct does not appear to be well opacified. It is difficult to exclude stricture or filling defect in that region. Otherwise the remainder of the opacified biliary system demonstrates no stricture or filling defect. IMPRESSION: 149 seconds fluoroscopy time utilized. <Electronically signed by Gavin Sanders > 12/24/20 0402
== END 2020-12-24 14:43 | disposition home or self-care (01) ==
LOC: M SDC 06:11
PROVIDERS: ATTEND Surgery
DX: K80.10 Calculus of gallbladder with chronic cholecystitis without obstruction (principal); K82.1 Hydrops of gallbladder; R10.13 Epigastric pain; M62.00 Separation of muscle (nontraumatic), unspecified site; R60.0 Localized edema; I87.313 Chronic venous hypertension (idiopathic) with ulcer of bilateral lower extremity; K76.0 Fatty (change of) liver, not elsewhere classified; I11.9 Hypertensive heart disease without heart failure; E11.9 Type 2 diabetes mellitus without complications; F41.9 Anxiety disorder, unspecified; F32.9 Major depressive disorder, single episode, unspecified; E78.00 Pure hypercholesterolemia, unspecified; E03.9 Hypothyroidism, unspecified; G90.09 Other idiopathic peripheral autonomic neuropathy; Z95.1 Presence of aortocoronary bypass graft; Z79.899 Other long term (current) drug therapy; Z79.4 Long term (current) use of insulin; Z79.891 Long term (current) use of opiate analgesic; Z79.82 Long term (current) use of aspirin; Z88.8 Allergy status to other drugs, medicaments and biological substances; Z91.018 Allergy to other foods
CPT/HCPCS: 47563; 64488; 76000; 88304; J0131; J1100; J2250; J2370; J2405; J3010; Q9961; Q9968; S2900